=== PATIENT | female | born 1935 | race Caucasian/White ===

== ENCOUNTER 2019-06-21 09:11 | Emergency (ER) | payer MEDICARE, BC ==
[~2019-06-21] VITALS: Ht 160 cm; Wt 66.7 kg
[2019-06-21] MEDS ORDERED: LEVO-T25 MCG PO (09:28)
[2019-06-21] MEDS ORDERED: BUPROPION XL300 MG PO (09:28)
[2019-06-21] MEDS ORDERED: VITAMIN D32000 UNI2 PO (09:29)
[2019-06-21] MEDS ORDERED: CLEARLAX17 GM PO (09:29)
[2019-06-21] MEDS ORDERED: DIVALPROEX SOD125 MG PO (09:29)
[2019-06-21] MEDS ORDERED: MELOXICAM7.5 MG PO (09:29)
[2019-06-21] MEDS ORDERED: OMEPRAZOLE40 MG PO (09:30)
[2019-06-21] MEDS ORDERED: PROAIR HFA8.5 GM INH (09:30)
[2019-06-21] MEDS ORDERED: DOXYCYCLINE 10100 M2 PO (09:30)
[2019-06-21] MEDS ORDERED: CARAFATE1 GM/10 ML PO (09:30)
[2019-06-21 11:33] LABS: HEMATOCRIT 36.7 % (37.0-47.0); HEMOGLOBIN 12.4 gm/dL (12.0-15.0); MCH 31.2 pg (26.0-34.0); MCHC 33.9 g/dL (28.0-37.0); MCV 92.1 fL (80.0-100.0); MPV 9.8 fl. (7.2-11.1); RBC 3.98 mil/uL (4.20-5.00); RDW-CV 14.4 % (10.5-14.5); WBC 8.8 thou/uL (4.0-11.0)
[2019-06-21 11:58] LABS: CALCIUM 8.8 mg/dL (8.5-10.1); CREATININE 0.8 mg/dL (0.6-1.3)
[2019-06-21 12:01] LABS: PROTIME 10.7 Seconds (9.20-11.50)
[2019-06-21 12:09] LABS: ALBUMIN 3.3 g/dL (3.4-5.0); TOTAL BILIRUBIN 0.5 mg/dL (<0.1-1.0); TOTAL PROTEIN 6.5 g/dL (6.4-8.2)
[2019-06-21 13:21] VITALS: BP 106/70
--- NOTE | 2019-06-21 15:06 | EKG ---
[place] [address] ELECTROCARDIOGRAM REPORT Name: GERMAINETOÑITO [id number] Admission: 06/21/19 Attend Phys: Discharge: 06/21/19 Date of : 35 Report #: [id number] THIS REPORT FOR: //name// [facility] ED Test Date: 2019-06-21 Test Time: 11:05:09 Pat Name: TOÑITO HERRON Department: Room: Gender: F Fx Artist: [facility] : 1935 Requested By: Litzy Amaya Order Number: [id number] MD: Bebeto Smas Measurements Intervals [place] Rate: 77 P: -1 VT: 171 QRS: -13 QRSD: 98 T: -8 QT: 379 QTc: 429 Interpretive Statements Sinus arrhythmia Probable left ventricular hypertrophy Inferior infarct, old No previous ECG available for comparison Electronically Signed On 06-21-2019 15:06:01 MANAGEMENT AND BUDGET ANALYST by Bebeto Sams [email or web address] <ELECTRONICALLY SIGNED> By: Bebeto Sams MD, [facility] 06/21/19 1506 1105 04 Bebeto Sams MD, FACC /EPI
== END 2019-06-21 13:24 | disposition home or self-care (01) ==
LOC: M.ERS 09:11
PROVIDERS: Personal Emergency Response Attendant
DX: M25.572 Pain in left ankle and joints of left foot (principal); R60.0 Localized edema; M79.89 Other specified soft tissue disorders; K21.9 Gastro-esophageal reflux disease without esophagitis; E03.9 Hypothyroidism, unspecified; E78.5 Hyperlipidemia, unspecified

== ENCOUNTER 2019-07-09 01:52 | Inpatient (IN) | payer MEDICARE, BC ==
[~2019-07-09] VITALS: Ht 167.6 cm; Wt 76.5 kg
[~2019-07-09 01:52] MED LIST: BUPROPION XL300 MG PO; CARAFATE1 GM/10 ML PO; CLEARLAX17 GM PO; DIVALPROEX SOD125 MG PO; DOXYCYCLINE 10100 M2 PO; LEVO-T25 MCG PO; MELOXICAM7.5 MG PO; OMEPRAZOLE40 MG PO; PROAIR HFA8.5 GM INH; VITAMIN D32000 UNI2 PO
[2019-07-09 01:59] VITALS: BP 142/62
[2019-07-09] MEDS ORDERED: CARAFATE 11 GM/10 M1 PO (02:07)
--- NOTE | 2019-07-09 02:08 | NUR ---
CALLED [facility] FLORENCE FOR REPORT ON PATIENT. NURSE STATES "I DON'T KNOW MUCH ABOUT HER BECAUSE I WORK NIGHTS". NURSE DID STATES PATIENT'S SON IS COMING TO THE ED TONIGHT "AND MAY KNOW WHAT'S GOING ON".
[2019-07-09 02:40] LABS: ABSOLUTE BASOPHILS 0.1 thou/uL (0.0-0.2); ABSOLUTE EOSINOPHILS 0.3 thou/uL (0.0-0.7); ABSOLUTE LYMPHOCYTES 2.1 thou/uL (0.8-5.3); ABSOLUTE MONOCYTES 1.2 thou/uL (0.0-1.2); BASOPHILS 0.9 %; EOSINOPHILS 3.2 %; HEMATOCRIT 37.8 % (37.0-47.0); HEMOGLOBIN 12.5 gm/dL (12.0-15.0); LYMPHOCYTES 19.8 %; MCH 30.6 pg (26.0-34.0); MCHC 33.2 g/dL (28.0-37.0); MCV 92.4 fL (80.0-100.0); MONOCYTES 11.2 %; MPV 9.8 fl. (7.2-11.1); NUCLEATED RBCS 0 /100WBC; PLATELET COUNT* 226 thou/uL (150-400); POLYS 64.9 %; RBC 4.09 mil/uL (4.20-5.00); RDW-CV 14.2 % (10.5-14.5); WBC 10.8 thou/uL (4.0-11.0)
[2019-07-09 02:55] LABS: ALBUMIN 3.4 g/dL (3.4-5.0); CALCIUM 8.6 mg/dL (8.5-10.1); CREATININE 0.8 mg/dL (0.6-1.3); TOTAL BILIRUBIN 0.5 mg/dL (<0.1-1.0); TOTAL PROTEIN 7.1 g/dL (6.4-8.2)
--- NOTE | 2019-07-09 03:09 | NUR ---
WENT TO STRAIGHT CATH PT. MULTIPLE SATURATED BRIEFS NOTED ON PT. PANUS IS EXCORIATED AND OOZING. PT CLEANED AFTER PROCEDURE AND BARRIER CREAM APPLIED
[2019-07-09 03:15] LABS: URINE BILIRUBIN NEGATIVE (Negative); URINE BLOOD 1+ (Negative); URINE CLARITY CLEAR; URINE COLOR YELLOW; URINE GLUCOSE-RANDOM NEGATIVE (Negative); URINE KETONES NEGATIVE (Negative); URINE LEUKOCYTES-REFLEX TRACE (Negative); URINE PROTEIN NEGATIVE (Negative); URINE SPECIFIC GRAVITY 1.025 (1.005-1.030); URINE UROBILINOGEN 0.2 E.U./dl (0.2-1.0)
[2019-07-09 03:18] LABS: POTASSIUM 4.2 mmol/L (3.5-5.1)
[2019-07-09 03:20] LABS: URINE NITRITE-REFLEX POSITIVE (Negative)
[2019-07-09 03:35] LABS: CASTS None Seen /LPF (None Seen); SQUAMOUS NONE SEEN /LPF (0-3); URINE RBC 0-2 Rare /HPF (0-2); URINE WBC-REFLEX >25 Many /HPF (0-5)
[2019-07-09 03:36] LABS: BACTERIA-REFLEX >30 Many /HPF (None Seen); CRYSTALS None Seen /LPF (None Seen)
[2019-07-09 04:24] LABS: ESR (SEDRATE) 15 mm/hr (0-30)
--- NOTE | 2019-07-09 06:58 | NUR ---
THIS NURSE RECIEVED REPORT FROM CORINNE DAMICO. THIS NURSE TO ASSUME PT CARE AT THIS [facility].
[2019-07-09 08:15] VITALS: BP 108/50
[2019-07-09 09:20] VITALS: BP 128/55
--- NOTE | 2019-07-09 11:11 | EKG ---
[place] [address] ELECTROCARDIOGRAM REPORT Name: TOÑITO HERRON Room: [address] ADM IN .R.#: [id number] Admission: 07/09/19 Attend Phys: Sarah Christian Discharge: Date of : 35 Report #: [id number] THIS REPORT FOR: //name// [facility] ED Test Date: 2019-07-09 Test Time: 02:17:08 Pat Name: TOÑITO HERRON Department: Room: [facility] Gender: F Finisher [employer]: : 1935 Requested By: Yamel Real Order Number: [id number] MD: Bebeto Sams Measurements Intervals [place] Rate: 77 P: 6 UT: 172 QRS: -10 QRSD: 98 T: 10 QT: 385 QTc: 436 Interpretive Statements Sinus rhythm Atrial premature complexes in couplets Borderline T abnormalities, anterior leads Compared to ECG 06/21/2019 11:05:09 no change Electronically Signed On 07-09-2019 11:10:16 REFUGE MANAGER by Bebeto Sams [email or web address] <ELECTRONICALLY SIGNED> By: Bebeto Sams MD, [facility] 07/09/19 1110 0217 0217 Bebeto Sams MD, [facility] /EPI
[2019-07-09 17:20] VITALS: BP 147/65
--- NOTE | 2019-07-09 17:20 | NUR ---
ADMIT FROM TODAY. REVIEWED CHART PT.LIVES AT [facility]. HAS DEMENTIA. RN SAID PT.CAME IN WITH 3 BRIEFS ON ONE OVER THE OTHER, VERY SOILED. CM WAS NOT ABLE TO SPEAK WITH FAMILY BUT WILL SEE TOMORROW.
--- NOTE | 2019-07-09 17:29 | NUR ---
PATIENT TRANSFERRED FROM [facility] AT 1630. REPORT RECEIVED FROM CORINNE HARRIS. NO COMPLAINTS AT THIS TIME. PATIENT ALERT BUT CONFUSED. IV SL. BED ALARM ON FOR PATIENT SAFETY.
[2019-07-09 19:50] VITALS: BP 85/63
--- NOTE | 2019-07-10 05:51 | NUR ---
PT SOMETIMES ORIENTED TO PERSON. VERY CONFUSED. MOSTLY UNABLE TO CARRY OUT INTELLIGIBLE CONVERSATIONS. PT SLEPT OFF AND ON THIS SHIFT. PT UP TO BEDSIDE COMMODE THIS SHIFT. PT ATTEMPTED GETTING OUT OF BED SEVERAL TIMES THIS SHIFT. PT NOW SITTING ON A RECLINER. CHAIR ALARM ON. MAGAZINES PROVIDED TO KEEP PT OCCUPIED. HAND TOWELS ALSO PROVIDED FOR PT TO FOLD TO KEEP HER BUSY. PT CURRENTLY SITTING IN THE RECLINERS FLIPPING THROUGH MAGAZINES. FALL PRECAUTION IN PLACE. CALL LIGHT WITH REACH. HOURLY ROUNDINGS MADE. WILL CONTINUE TO MONITOR.
[2019-07-10 06:08] LABS: CALCIUM 8.8 mg/dL (8.5-10.1); CREATININE 0.8 mg/dL (0.6-1.3); MAGNESIUM 1.9 mg/dL (1.8-2.4); POTASSIUM 4.2 mmol/L (3.5-5.1)
[2019-07-10 08:00] VITALS: BP 105/68
[2019-07-10 12:37] LABS: INFLUENZA A ANTIGEN Negative (Negative); INFLUENZA B ANTIGEN Negative (Negative)
--- NOTE | 2019-07-10 16:14 | NUR ---
PATIENT UP IN CHAIR MOST OF SHIFT. REMAINS CONFUSED WITH DEMENTIA. IV SL, SCHED ROCEPHIN GIVEN ORDERED. NO COMPLAINTS OF PAIN. PATIENT HAD GOOD APPETITE TODAY, ASSISTED WITH TRAY SET UP.
[2019-07-10 16:27] VITALS: BP 101/62
[2019-07-10 19:30] VITALS: BP 105/57
--- NOTE | 2019-07-11 04:53 | NUR ---
PT SOMETIMES ORIENTED TO SELF. CONFUSED. FORGETFUL. PT SLEPT WELL THIS SHIFT. ATTEMPTED GETTNG OUT OF BED JUST ONCE THIS SHIFT. PT WAS TEARY AT THAT TIME AND UNABE TO EXPLAIN WHY. PT TO BSC THIS SHIFT. Q2 TURN. HOWEVER PT REPOSITIONED HERSELF SEVERAL TIMES WITHOUT ASSISTANCE. PT ROLL AROUND WELL IN BED. MEDS GIVEN PER EMAR. CALL LIGHT WITHIN REACH. FALL PRECAUTION IN PLACE. HOURLY ROUNDINGS MADE. WILL CONTINUE TO MONITOR.
--- NOTE | 2019-07-11 17:45 | NUR ---
SW met with pt and pt family to discuss role of CM and dc planning. Pt family anticipates pt possibly being ready to dc in a couple of days. SW to contact [facility] and discuss dc and provide any needed updates. SW to continue to follow.
--- NOTE | 2019-07-11 18:23 | NUR ---
PT AWAKE/ALERT. ORIENTED TO SELF. VSS. PT HAS NO IV ACCESS AT BEGINNING OF THIS SHIFT. TEOFILO RN PLACED LINE TO LFA. CXR THIS AM, NO CRITICAL RESULTS REPORTED. PT UP TO RECLINER MOST OF THIS SHIFT WITH CHAIR ALARM IN PLACE. PT SWALLOWS PILLS WITHOUT DIFFICULTY. PT IS UP SBA, GAIT STEADY. PT REMAINS CONTINENT OF B/B THIS SHIFT. PT FAMILY PRESENT THIS AFTERNOON WHEN DR PENA ROUNDED. CASE MANAGEMENT CONSULTED FOR DC PLAN. PT AMBULATED TO RESTROOM WITH SBA AND GAIT BELT. FALL PRECAUTIONS REMAIN IN PLACE FOR PT SAFETY. PT ROOM IN VIEW OF NURSES STATION. PT RESTS IN BED AT THIS TIME WITH CALL LIGHT IN REACH AND BED ALARM ON. WILL CONTINUE TO MONITOR.
[2019-07-11 21:10] LABS: HSV 1 DNA Negative (Negative); HSV 2 DNA Negative (Negative)
[2019-07-12] VITALS: BP 137/60
[2019-07-12 07:40] VITALS: BP 97/64
[2019-07-12] MEDS ORDERED: MACROBID 100 M100 MG PO (10:42)
[2019-07-12] MEDS ORDERED: CULTURELLE KID1 EAC1 PO (10:42)
[2019-07-12] MEDS ORDERED: AZITHROMYCIN 2250 MG PO (10:52)
[2019-07-12] MEDS ORDERED: KETOCONAZOLE15 GM TOP (10:52)
[2019-07-12 12:07] VITALS: BP 97/64
--- NOTE | 2019-07-12 12:36 | NUR ---
Pt to dc home to [facility] today. LEXUS called Yas at [facility] and informed of pt to dc today and faxed information and dc summary/med list. SW arranged transport for 2 to 3 pm. Pt nurse aware. LEXUS called pt son and informed of pt final dc plan; pt family in agreement with plan. [facility] ph [phone] fax [phone]
--- NOTE | 2019-07-12 14:00 | NUR ---
PT AWAKE/ALERT. ORIENTED TO SELF. VSS. PT UP SBA X1, GAIT STEADY. PT RESTS IN ROOM IN RECLINER WITH CHAIR ALARM IN PLACE. PT DOES NOT REMEMBER TO USE CALL LIGHT APPROPRIATELY. IV TO LFA DC'D PRIOR TO LEAVING UNIT. PT REMAINS FREE OF FALLS. PT TOOK MEDICATIONS THIS AM WITHOUT DIFFICULTY. PT EATS AND DRINKS UNASSISTED. PT REMAINS CONTINENT OF B/B. PT RESTS IN ROOM WITH CALL LIGHT IN REACH, IN VIEW OF NURSES STATION. PT ASSISTED TO DRESS IN PERSONAL CLOTHING FROM HOME. PT TO RETURN TO [facility] UPON DC FROM HOSPITAL. PT LEAVES UNIT IN WC WITH GREEN TIRE INSPECTOR. PT BELONGINGS IN BAG ACCOMPANY PT TO FACILITY.
== END 2019-07-12 14:00 | DRG 193 ==
LOC: M.ERS 01:52 → M.TBA-ER 05:59 → M.ORTHSURG 05:59 → M.3W 16:42
PROVIDERS: Emergency Medicine; Internal Medicine; ADMIT Internal Medicine
DX: J15.9 Unspecified bacterial pneumonia (principal); G92 Toxic encephalopathy; N30.01 Acute cystitis with hematuria; F32.9 Major depressive disorder, single episode, unspecified; K21.9 Gastro-esophageal reflux disease without esophagitis; E03.9 Hypothyroidism, unspecified; E78.5 Hyperlipidemia, unspecified; K59.00 Constipation, unspecified; I10 Essential (primary) hypertension; B37.2 Candidiasis of skin and nail; G30.9 Alzheimer's disease, unspecified; F02.80 Dementia in other diseases classified elsewhere, unspecified severity, without behavioral disturbance, psychotic disturbance, mood disturbance, and anxiety; B96.20 Unspecified Escherichia coli [E. coli] as the cause of diseases classified elsewhere; Z87.891 Personal history of nicotine dependence; Z79.899 Other long term (current) drug therapy

== ENCOUNTER 2019-08-04 05:39 | Inpatient (IN) | payer MEDICARE, BC ==
[~2019-08-04] VITALS: Ht 160 cm; Wt 74.8 kg
[~2019-08-04 05:39] MED LIST changes: +AZITHROMYCIN 2250 MG PO; +CARAFATE 11 GM/10 M1 PO; +CULTURELLE KID1 EAC1 PO; +KETOCONAZOLE15 GM TOP; +MACROBID 100 M100 MG PO
[2019-08-04 05:50] VITALS: BP 140/58
[2019-08-04] MEDS ORDERED: VITAMIN D32000 UNI2 PO (06:00)
[2019-08-04 06:38] LABS: ABSOLUTE BASOPHILS 0.1 thou/uL (0.0-0.2); ABSOLUTE EOSINOPHILS 0.1 thou/uL (0.0-0.7); ABSOLUTE LYMPHOCYTES 1.7 thou/uL (0.8-5.3); ABSOLUTE NEUTROPHILS 7.6 thou/uL (1.6-8.1); BASOPHILS 0.9 %; EOSINOPHILS 1.3 %; HEMATOCRIT 37.5 % (37.0-47.0); HEMOGLOBIN 12.6 gm/dL (12.0-15.0); LYMPHOCYTES 16.4 %; MCH 31.1 pg (26.0-34.0); MCHC 33.7 g/dL (28.0-37.0); MCV 92.3 fL (80.0-100.0); MONOCYTES 9.2 %; MPV 9.8 fl. (7.2-11.1); NUCLEATED RBCS 0 /100WBC; PLATELET COUNT* 215 thou/uL (150-400); POLYS 72.2 %; RBC 4.06 mil/uL (4.20-5.00); RDW-CV 14.9 % (10.5-14.5); WBC 10.5 thou/uL (4.0-11.0)
[2019-08-04 06:43] LABS: CALCIUM 8.3 mg/dL (8.5-10.1); CREATININE 0.6 mg/dL (0.6-1.3); POTASSIUM 4.2 mmol/L (3.5-5.1)
[2019-08-04 06:47] LABS: ALBUMIN 3.4 g/dL (3.4-5.0); TOTAL BILIRUBIN 0.3 mg/dL (<0.1-1.0); TOTAL PROTEIN 6.8 g/dL (6.4-8.2)
[2019-08-04 08:35] LABS: URINE BILIRUBIN NEGATIVE (Negative); URINE BLOOD NEGATIVE (Negative); URINE CLARITY CLEAR; URINE COLOR YELLOW; URINE GLUCOSE-RANDOM NEGATIVE (Negative); URINE KETONES NEGATIVE (Negative); URINE LEUKOCYTES-REFLEX NEGATIVE (Negative); URINE NITRITE-REFLEX NEGATIVE (Negative); URINE PROTEIN NEGATIVE (Negative); URINE SPECIFIC GRAVITY 1.025 (1.005-1.030); URINE UROBILINOGEN 0.2 E.U./dl (0.2-1.0)
--- NOTE | 2019-08-04 11:38 | NUR ---
PT LEFT FOR SURGERY WITH PRE-OP RN
[2019-08-04 11:39] VITALS: BP 127/66
--- NOTE | 2019-08-04 15:08 | EKG ---
[place] [address] ELECTROCARDIOGRAM REPORT Name: JACOB HERRONDYS NATE Room: [facility]- ADM IN .R.#: [id number] Admission: 08/04/19 Attend Phys: Lavon Rivas Discharge: Date of : 35 Date of Service: 08/04/19 0640 Report #: [id number] THIS REPORT FOR: //name// [facility] ED Test Date: 2019-08-04 Test Time: 06:40:20 Pat Name: TOÑITO HERRON Department: Room: [facility] Gender: F Pack Room Operator: FILI : 1935 Requested By: Moses Carter Order Number: [id number] MD: Asim Aguilar Measurements Intervals [place] Rate: 65 P: 18 IA: 178 QRS: -9 QRSD: 108 T: -3 QT: 417 QTc: 434 Interpretive Statements Sinus rhythm Inferior infarct, old Compared to ECG 07/09/2019 02:17:08 Myocardial infarct finding now present Atrial premature complex(es) no longer present T-wave abnormality no longer present Electronically Signed On 08-04-2019 15:07:28 YARN COMBER by Asim Aguilar [email or web address] <ELECTRONICALLY SIGNED> By: Erick Aguilar MD, [facility] 08/04/19 1507 0640 Erick Aguilar MD, [facility] /EPI
[2019-08-04 15:30] VITALS: BP 157/79
--- NOTE | 2019-08-04 17:33 | NUR ---
ASSESSMENT COMPLETE. PT ADMITTED WITH INCARCERATED VENTRAL HERNIA, SURGERY DONE BY HANDY. PT SLEEPING UPON ADMISSION TO FLOOR. RESPONDS TO VOICE. PT DENIES PAIN AT THIS TIME. VSS. PT IS ON 3L PER NC WITH CONTINOUS PULSE OX. DRESSING TO RIGHT SIDE OF ABD C/D/I, ABD BINDER INTACT. PT HAS NO OTHER CONCERNS AT THIS TIME. SEE ASSESSMENT AND VITALS FOR OTHER DETAILS. CALL LIGHT WITHIN REACH, WILL CONTINUE PLAN OF CARE
[2019-08-04 19:20] VITALS: BP 147/75
[2019-08-04 23:56] VITALS: BP 137/57
[2019-08-05 04:00] VITALS: BP 132/62
[2019-08-05 04:23] LABS: ABSOLUTE LYMPHOCYTES 1.3 thou/uL (0.8-5.3); BASOPHILS 0.4 %; EOSINOPHILS 0.1 %; HEMATOCRIT 35.7 % (37.0-47.0); HEMOGLOBIN 11.9 gm/dL (12.0-15.0); LYMPHOCYTES 12.5 %; MCH 30.9 pg (26.0-34.0); MCHC 33.3 g/dL (28.0-37.0); MCV 92.8 fL (80.0-100.0); MONOCYTES 9.3 %; MPV 10.2 fl. (7.2-11.1); NUCLEATED RBCS 0 /100WBC; PLATELET COUNT* 197 thou/uL (150-400); POLYS 77.7 %; RBC 3.85 mil/uL (4.20-5.00); RDW-CV 14.7 % (10.5-14.5); WBC 10.3 thou/uL (4.0-11.0)
[2019-08-05 04:36] LABS: CALCIUM 8.2 mg/dL (8.5-10.1); CREATININE 0.8 mg/dL (0.6-1.3)
[2019-08-05 04:56] LABS: POTASSIUM 4.2 mmol/L (3.5-5.1)
--- NOTE | 2019-08-05 05:08 | NUR ---
PT SLEPT ON AND OFF LAST NIGHT, RECEIVING IV AND PO PAIN MED WITH GOOD RELIEF. CONFUSED, ANXIOUS AND TEARY FOR A WHILE IN THE MIDDLE OF THE NIGHT. REASSURANCE GIVEN. CONTINUOUS PULSE OX ON, O2 SAT MID 90'S WITH O2 2L WHILE ASLEEP. R HAND IVF INFUSING PER PUMP. ABD BINDER IN PLACE TO ABDOMEN. ABD DRSG CDI. INCONT URINE OVERNIGHT SEVERAL TIMES. UP WITH 2 ASSIST TO BSC. SCDS ON. CALL LITE IN EASY REACH ,BED ALARM ON FOR SAFETY. AM LABS DRAWN. TOLERATING SIPS OF CLEARS WITHOUT N/V.
[2019-08-05 07:50] VITALS: BP 99/60
--- NOTE | 2019-08-05 12:47 | NUR ---
FAXED REFERRAL TO [facility] [phone]. WILL CALL TO CONFIRM ALLEN/INTAKE RECEIVED AND BED AVAILABILITY ON 08/07/19. THERAPY NOTES WILL BE FAXED WHEN OT & PT SERVICES COMPLETED AND DOCUMENTED.
--- NOTE | 2019-08-05 13:19 | NUR ---
cm completed intial assessment. pt is not a&o. pt son, agatha, states he is pt's dpoa. pt [facility] per agatha pt is alert to self sometimes, "depends." and, pt's memory and orientation seems to be better in the mornings. pt uses cane. pt has hx w/[facility]. cm spk w/DON at [facility]. per wagner pt okay to return to facility as long as she can transfer w/one assist, has no drainage, and will need HH if pt needs wound dressings change. pt son does not have a preference re snf. d/c raw material plannermitesh is faxing referral to V today. cm to remain avail to assist as needed.
[2019-08-05 16:00] VITALS: BP 102/54
--- NOTE | 2019-08-05 16:58 | NUR ---
I have reviewed the documentation by MELISSA JACKSON from 08/05/19 to 08/05/19 and I concur with it. JESS WALKER
--- NOTE | 2019-08-05 17:02 | NUR ---
ASSESSMENT COMPLETE. PT ALERT AND ORIENTED TO SELF. PT HAS HX OF DEMENTIA. PRN PAIN MEDICATION GIVEN NEEDED. PT UP IN CHAIR MOST OF THE DAY. AMBULATED WITH PHYSICAL THERAPY. PT IS INCONT, Q2 TURN. PT IS ON 3L PER NC WHEN ASLEEP. VSS. DRESSING TO ABDOMEN C/D/I, BINDER IN PLACE. PT IS SLEEPING AT THIS TIME. SEE ASSESSMENT AND VITALS FOR OTHER DETAILS. CALL LIGHT WITHIN REACH, WILL CONTINUE PLAN OF CARE
[2019-08-05 20:30] VITALS: BP 134/61
[2019-08-06] VITALS: BP 136/64
[2019-08-06 05:41] LABS: HEMATOCRIT 32.3 % (37.0-47.0); MCH 31.4 pg (26.0-34.0); MCV 92.4 fL (80.0-100.0); MPV 9.7 fl. (7.2-11.1); RBC 3.5 mil/uL (4.20-5.00); RDW-CV 14.6 % (10.5-14.5)
--- NOTE | 2019-08-06 05:50 | NUR ---
PATIENT SLEPT MOST OF THE NIGHT. IV FLUIDS CONTINUE TO INFUSE AT 100 ML/HR. DRESSING TO ABDOMEN REMAINS INTACT WITH ABDOMINAL BINDER IN PLACE. PATIENT HAS BEEN TURNED AND CHANGED ABOUT EVERY TWO HOURS. WILL CONTINUE TO MONITOR.
[2019-08-06 05:55] LABS: CALCIUM 7.8 mg/dL (8.5-10.1); CREATININE 0.8 mg/dL (0.6-1.3); MAGNESIUM 1.9 mg/dL (1.8-2.4); POTASSIUM 3.8 mmol/L (3.5-5.1)
[2019-08-06 07:28] VITALS: BP 117/52
--- NOTE | 2019-08-06 11:30 | NUR ---
SON REQUESTING TO SPEAK TO CM THIS AM. WHEN CM WENT INTO ROOM SON WAS ALREADY GONE. MESSAGES LEFT BUT NO RETURN CALL. CM TO DISCUSS PLACEMENT OPTIONS. PLAN TO DC TOMORROW
--- NOTE | 2019-08-06 13:26 | NUR ---
I have reviewed the documentation by MELISSA JACKSON from 08/06/19 to 08/06/19 and I concur with it. JESS WALKER
--- NOTE | 2019-08-06 15:09 | NUR ---
RECEIVED CALL FROM SON JUSTEN WHO STATES HE IS OK FOR PT TO GO TO [facility] TOMORROW OR LATER THIS WEEK WHEN DISCHARGED.
[2019-08-06 15:30] VITALS: BP 178/65
--- NOTE | 2019-08-06 16:02 | NUR ---
PATIENT UP TO CHAIR FOR MEALS AND AMBULATING IN ROOM WITH ASSISTANCE. PATIENT UTILZING WALKER AND GAIT BELT. PATIENT REMAINS CONFUSED HX DEMENTIA. IV SL ORDERED. CXR DONE AND RESULTS SENT TO DR. MONTEZ, NO NEW ORDERS RECEIVED. PATIENT HAS A FAIR APPETITE, ENCOURAGED TO EAT. PRN OXY IR GIVEN FOR ABD PAIN X 2. ABD BINDER AND MIDLINE REMAIN IN PLACE, D/I. PATIENT DID HAVE A SMALL FORMED STOOL THIS SHIFT, SCHED STOOL SOFTNERS AND ONE TIME SUPPOSITORY GIVEN ORDERED. DISCHARGE TO SNF POSSIBLE TOMORROW.
[2019-08-06 16:58] VITALS: BP 129/66
[2019-08-06 21:30] VITALS: BP 166/64
[2019-08-07 05:04] LABS: HEMATOCRIT 34.3 % (37.0-47.0); HEMOGLOBIN 11.4 gm/dL (12.0-15.0); MCH 30.8 pg (26.0-34.0); MCHC 33.3 g/dL (28.0-37.0); MCV 92.2 fL (80.0-100.0); MPV 9.8 fl. (7.2-11.1); RBC 3.72 mil/uL (4.20-5.00); RDW-CV 14.6 % (10.5-14.5); WBC 11.4 thou/uL (4.0-11.0)
--- NOTE | 2019-08-07 05:13 | NUR ---
PATIENT PART OF THE NIGHT. IV REMAINS SALINE LOCKED. PATIENT WAS GIVEN PAIN MEDICINE ONCE THIS SHIFT. PATIENT IS POSSIBLY DISCHARGING TODAY. WILL CONTINUE TO MONITOR.
[2019-08-07 05:20] LABS: CALCIUM 8.2 mg/dL (8.5-10.1); CREATININE 0.7 mg/dL (0.6-1.3); POTASSIUM 3.5 mmol/L (3.5-5.1)
[2019-08-07 05:21] LABS: CALCIUM 8.4 mg/dL (8.5-10.1); CREATININE 0.7 mg/dL (0.6-1.3); MAGNESIUM 1.9 mg/dL (1.8-2.4); POTASSIUM 3.4 mmol/L (3.5-5.1)
[2019-08-07 08:25] VITALS: BP 131/62
--- NOTE | 2019-08-07 10:07 | PATH ---
[address] [address] PATHOLOGY RPT PROCEDURE Name: MARTHA HERRON Room: [address] IN .R.#: [id number] Admission: 08/04/19 Date of : 35 Discharge: Report #: [id number] Path Case #: [id number] LCA Accession Number: [id number] . 01 Material submitted: . hernia - HERNIA SAC . 01 Clinical history: . Incarcerated ventral hernia . 02 Diagnosis: Hernia sac: - Benign mesothelial-lined fibromembranous/fibrofatty tissue with fibrosis and mild chronic inflammation. . (DAIJA:mml; 08/06/2019) QLM 08/06/2019 1016 Local . 02 Electronically signed: . Roney Trinh MD, Pathologist NPI- [id number] . 01 Gross description: . The specimen is received in formalin, labeled "Martha Wigginton, hernia sac". Received is a segment of fibromembranous tissue measuring 5.3 x 3.1 x 1.2 cm in greatest dimensions. No distinct nodules or lesions are noted grossly. The specimen is submitted representatively in cassette A1. (CAA; 08/05/2019) Q[facility] 08/05/2019 1153 Local . 02 Pathologist provided ICD-10: K43.6 . 02 CPT . 127396 Specimen Comment: A courtesy copy of this report has been sent to [phone] Specimen Comment: Report sent to Specimen Comment: A duplicate report has been generated due to demographic updates. Performed at: [address], [place], [place] [id number] MD Michael Black MD Phone: [phone] Performed at: [address] [address] [address], [place], [place] [id number] MD Roney Trinh MD Phone: [phone]
[2019-08-07] MEDS ORDERED: OXYCODONE HCL 55 MG PO (11:24)
[2019-08-07 11:25] VITALS: BP 131/62
[2019-08-07] MEDS ORDERED: PAIN & FEVER325 MG PO (11:31)
--- NOTE | 2019-08-07 11:44 | NUR ---
DISCHARGE ORDERS RECEIVED. PLAN TO DISCHARGE TO [facility]. WILL VERIFY WITH [facility] AND ARRANGE TRANSPORT
--- NOTE | 2019-08-07 12:40 | OP ---
[address] [address] OPERATIVE REPORT Name: TOÑITO HERRON Room: [address] IN M.R.#: [id number] Admission: 08/04/19 Attend Phys: Jose Pereyra Discharge: Date of : 35 Report #: [id number] THIS REPORT FOR: //name// cc: Rebeca Borjas Kathryn C. DO ~ THIS REPORT FOR: //name// CC: Rebeca Rivas DICTATED BY: Tomy Schneider DO DATE OF SERVICE: 08/04/2019 PREOPERATIVE DIAGNOSIS: Incarcerated ventral hernia. POSTOPERATIVE DIAGNOSIS: Incarcerated ventral hernia containing transverse colon. SURGEON: Juan M Franco D.O. MANAGER SAFE: Cr Schneider, PGY5. OPERATION PERFORMED: Ventral hernia repair with 6.[address] [place] mesh and ligation of the hernia sac. ANESTHESIA: General. ESTIMATED BLOOD LOSS: 25 mL. SPECIMENS: Hernia sac. COMPLICATIONS: None. COMMENTS: We were able to reduce the hernia sac contents containing omentum and transverse colon. All the contents within the sac appeared healthy. There were no signs of strangulation. The hernia defect was adjacent to the previous mesh and measured approximately 3 x 2 cm in size. We used a 6.[address] [place] mesh to repair the defect in an underlay position and closed the fascia over the top of the mesh using interrupted sutures. DESCRIPTION OF PROCEDURE: After the appropriate consents were obtained, this patient was taken to the operating room, laid in supine position. She had SCDs placed on her bilateral lower extremities and safety strap placed across her [facility] [address] [id number] OPERATIVE REPORT Name: TOÑITO HERRON NATE Room: [address] IN ..#: [id number] Admission: 08/04/19 Attend Phys: Jose Pereyra Discharge: Date of : 35 Report #: [id number] lap. She had both arms placed out at her sides. All lines placed by Anesthesia. The patient was sedated and intubated by Anesthesia without difficulty. Her abdomen was then exposed, prepped and draped in a standard sterile fashion. A timeout was performed to correctly identify the patient and procedure. She received 2 g of Ancef prior to incision. We elected to make a vertical incision directly over the obvious bulge just to the right of her midline. This was done using a #10 blade scalpel. This was carried down through subcutaneous tissues using electrocautery. Once we encountered the hernia sac, it was dissected circumferentially and freed up using a blunt dissection with hemostat as well as electrocautery in order to lyse the bands of adhesions. It appeared that this hernia sac had been there for quite a while as it was adhesed to the surrounding subcutaneous tissue. Once we dissected it free circumferentially, we were able to easily reduce the hernia sac contents and open the sac. All contents within the sac appeared healthy and these contents were reduced into the patient's intra-abdominal cavity. We elected to perform a high ligation on the sac and this was done using a right angle hemostat and ensured there were no contents within the sac. Upon doing so, this was clamped across it and then using a 2-0 Vicryl stitch, it was ligated twice and then we used electrocautery to cut through the superior portion and passed it off as specimen to be sent to Pathology. We then reduced the hernia sac back into the patient's intra-abdominal cavity and freed up any adhesions that were present on the underside of the peritoneum. There were a few adhesions mostly along the medial aspect of the defect, which were just adjacent to the previously placed mesh that we were able to palpate. We were able to easily see stitches within the fascia as well. We measured the defect to be approximately 3 x 2 cm and oval. Given the size of the defect, we elected to place a 6.[address] [place] mesh in an underlay position. This was placed and we elected to orient it to where we could close it primarily horizontally. Using #2-0 Prolene suture, we tacked the mesh to the fascia in 4 quadrants and then placed the sutures in between each of these sutures as well. These were interrupted sutures placed. Once we were pleased with how the mesh was sitting with good aposition to the abdominal wall, we then decided to close the fascia over top. We closed this using a #1 Prolene stitch, and it was closed primarily over the top of the mesh. We used simple and interrupted sutures and closed rather nicely with minimal tension. Once this was completed and we were pleased with our repair, we irrigated the cavity copiously using sterile saline and then closed the defect using a 3-0 Vicryl stitch. We did close up some of the space and tacked into the fascia in order to help prevent seroma formation. We closed the subcutaneous tissue as well as the dermis using the same 3-0 Vicryl stitch. We used a 4-0 [place] [address] OPERATIVE REPORT Name: TOÑITO HERRON Room: [address] IN [facility]#: [id number] Admission: 08/04/19 Attend Phys: Jose Pereyra Discharge: Date of : 35 Report #: [id number] subcuticular fashion to close the skin. The skin was cleaned and dried adequately and placed Mastisol, steri-strips, Telfa and a Mepilex over this incision. The patient was allowed to awaken and subsequently extubated in the OR. All counts were correct x 2 at the end of this procedure. Dr. Franco was present and scrubbed for the entirety of this procedure. The patient tolerated the procedure very well. She will be transported to PACU for further recovery and then be admitted overnight for observation. <ELECTRONICALLY SIGNED> By: Juan M Franco DO 08/07/19 1240 1433 1818Juan M Franco DO /nt
--- NOTE | 2019-08-07 13:00 | NUR ---
PT TO GO TO [facility] TODAY. TRANSPORT FOR 1500 BY BERNIE LAWSON. CALLED SON JUSTEN AND NOTIFIED HIM OF DISCHARGE
[2019-08-07 13:41] VITALS: BP 131/62
--- NOTE | 2019-08-07 14:47 | NUR ---
FAXED DISCHARGE SUMMARY AND CLINICAL UPDATES TO [facility] [phone].
--- NOTE | 2019-08-07 16:27 | NUR ---
PT. DISCHARGED TO [facility] PRIOR TO O.T. EVAL WAS COMPLETED. O.T. ATTEMPTED TO SEE PT. YESTERDAY BUT SHE WAS UNABLE TO PARTICIPATE YESTERDAY AFTERNOON. PLEASE ORDER FURTHER O.T. SERVICES NEEDED FOR THIS PT.
--- NOTE | 2019-08-07 16:50 | NUR ---
PATIENT UP WITH ASSISTANCE TO CHAIR AND AMBULATING SHORT DISTANCES IN ROOM. PATIENT INCONTINENT OF URINE, NO BM NOTED TODAY. FAIR APPETITE TODAY, PATIENT WAS FEEDING HERSELF TODAY. POTASSUM REPLACED PER PROTOCOL. REPORT CALLED TO [facility], SPOKE WITH IVETTE. PATIENT SENT WITH ALL BELONGINGS VIA WHEELCHAIR VAN.
== END 2019-08-07 16:00 | DRG 353 ==
LOC: M.ERS 05:39 → M.TBA-ER 11:33 → M.ERS 11:33 → M.3W 15:05
PROVIDERS: Emergency Medicine Emergency Medical Services; Internal Medicine; Surgery; ADMIT Internal Medicine
PROC: 0WUF0JZ Supplement Abdominal Wall with Synthetic Substitute, Open Approach (ICD-10-PCS; principal; 2019-08-04)
DX: K43.6 Other and unspecified ventral hernia with obstruction, without gangrene (principal); G92 Toxic encephalopathy; F03.90 Unspecified dementia, unspecified severity, without behavioral disturbance, psychotic disturbance, mood disturbance, and anxiety; F32.9 Major depressive disorder, single episode, unspecified; K21.9 Gastro-esophageal reflux disease without esophagitis; E03.9 Hypothyroidism, unspecified; T50.995A Adverse effect of other drugs, medicaments and biological substances, initial encounter; E78.5 Hyperlipidemia, unspecified; M81.0 Age-related osteoporosis without current pathological fracture; D64.9 Anemia, unspecified; J44.9 Chronic obstructive pulmonary disease, unspecified; Z87.891 Personal history of nicotine dependence; Z79.899 Other long term (current) drug therapy; Y92.89 Other specified places as the place of occurrence of the external cause

== ENCOUNTER 2020-06-01 13:54 | Inpatient (IN) | payer MEDICARE, BC ==
[~2020-06-01] VITALS: Ht 165.1 cm; Wt 81.6 kg
[~2020-06-01 13:54] MED LIST changes: +OXYCODONE HCL 55 MG PO; +PAIN & FEVER325 MG PO
[2020-06-01 13:57] VITALS: BP 128/59
[2020-06-01] MEDS ORDERED: ZPAK PO (16:54)
[2020-06-01 21:49] LABS: ABSOLUTE LYMPHOCYTES 0.9 thou/uL (0.8-5.3); ABSOLUTE MONOCYTES 0.7 thou/uL (0.0-1.2); ABSOLUTE NEUTROPHILS 3.5 thou/uL (1.6-8.1); BASOPHILS 0.6 %; EOSINOPHILS 0.1 %; HEMATOCRIT 35.5 % (37.0-47.0); HEMOGLOBIN 11.6 gm/dL (12.0-15.0); LYMPHOCYTES 17.6 %; MCH 29.8 pg (26.0-34.0); MCHC 32.8 g/dL (28.0-37.0); MCV 90.9 fL (80.0-100.0); MONOCYTES 12.7 %; MPV 9.9 fl. (7.2-11.1); NUCLEATED RBCS 0 /100WBC; PLATELET COUNT* 144 thou/uL (150-400); RDW-CV 16.2 % (10.5-14.5); WBC 5.1 thou/uL (4.0-11.0)
[2020-06-01 21:58] LABS: CREATININE 0.7 mg/dL (0.6-1.3)
[2020-06-01 22:03] LABS: ALBUMIN 3.1 g/dL (3.4-5.0); TOTAL BILIRUBIN 0.4 mg/dL (<0.1-1.0); TOTAL PROTEIN 6.6 g/dL (6.4-8.2)
[2020-06-02 03:04] VITALS: BP 138/64
[2020-06-02 05:59] LABS: HEMATOCRIT 36.9 % (37.0-47.0); MCH 29.5 pg (26.0-34.0); MCHC 32.6 g/dL (28.0-37.0); MCV 90.5 fL (80.0-100.0); MPV 10.6 fl. (7.2-11.1); NUCLEATED RBCS 0 /100WBC; PLATELET COUNT* 140 thou/uL (150-400); RBC 4.08 mil/uL (4.20-5.00); RDW-CV 16.2 % (10.5-14.5); WBC 6.4 thou/uL (4.0-11.0)
[2020-06-02 06:07] LABS: ALBUMIN 3.2 g/dL (3.4-5.0); CALCIUM 8.1 mg/dL (8.5-10.1); CREATININE 0.8 mg/dL (0.6-1.3); TOTAL BILIRUBIN 0.3 mg/dL (<0.1-1.0); TOTAL PROTEIN 6.4 g/dL (6.4-8.2)
[2020-06-02 06:43] VITALS: BP 109/57
[2020-06-02 06:45] LABS: ABSOLUTE LYMPHOCYTES 0.6 thou/uL (0.8-5.3); ABSOLUTE MONOCYTES 0.3 thou/uL (0.0-1.2); ABSOLUTE NEUTROPHILS 5.4 thou/uL (1.6-8.1); ANISOCYTOSIS 1+; OVALOCYTES Occasional; PLATELET ESTIMATE DECREASED; POIKILOCYTOSIS 1+
[2020-06-02] MEDS ORDERED: DORYX MPC120 MG PO (10:05)
[2020-06-02] MEDS ORDERED: NIACIN 500 MG500 M1 PO (10:06)
[2020-06-02] MEDS ORDERED: VITAMIN D310 MC1 PO (10:09)
[2020-06-02] MEDS ORDERED: ASPIRIN-DIPYRI1 EACH PO (10:09)
[2020-06-02] MEDS ORDERED: VITAMIN C500 M2 PO (10:11)
[2020-06-02 12:03] VITALS: BP 133/68
[2020-06-02 12:05] VITALS: BP 133/68
--- NOTE | 2020-06-02 12:24 | EKG ---
[place] [address] ELECTROCARDIOGRAM REPORT Name: TOÑITO HERRONFLACA Room: [address] [address] ADM IN [facility].#: [id number] Admission: 06/01/20 Attend Phys: Janett Shultz, Discharge: Date of : 35 Date of Service: 06/01/20 223 Report #: [id number] THIS REPORT FOR: //name// [facility] ED Test Date: 2020-06-01 Test Time: 22:37:03 Pat Name: TOÑITO HERRON Department: Room: [facility] Gender: F Source Water Protection Specialist: MR : 1935 Requested By: Paola Kelley Order Number: [id number] MD: Javier Alonso Measurements Intervals [place] Rate: 84 P: 43 SC: 149 QRS: -15 QRSD: 97 T: -69 QT: 344 QTc: 407 Interpretive Statements Sinus rhythm Atrial premature complex Nonspecific repol abnormality, diffuse leads Baseline wander in lead(s) V5 Compared to ECG 08/04/2019 06:40:20 Atrial premature complex(es) now present Early repolarization now present Myocardial infarct finding no longer present Electronically Signed On 06-02-2020 12:24:29 CYCLE SPECIALIST by Javier Alonso [email or web address] <ELECTRONICALLY SIGNED> By: Javier Alonso MD, [facility] 06/02/20 1224 36 36 Javier Alonso MD, [facility] /EPI
== END 2020-06-02 12:00 | DRG 177 ==
LOC: M.ERS 13:54 → M.TBA-ER 22:09 → M.ERS 22:09 → M.TBA-ER 22:21
PROVIDERS: Nurse Practitioner Family; Personal Emergency Response Attendant; ADMIT Internal Medicine; ATTEND Internal Medicine
DX: U07.1 COVID-19 (principal); J15.9 Unspecified bacterial pneumonia; E44.1 Mild protein-calorie malnutrition; F32.9 Major depressive disorder, single episode, unspecified; K21.9 Gastro-esophageal reflux disease without esophagitis; E03.9 Hypothyroidism, unspecified; E78.5 Hyperlipidemia, unspecified; M25.552 Pain in left hip; M25.551 Pain in right hip; M25.561 Pain in right knee; I10 Essential (primary) hypertension; S41.111A Laceration without foreign body of right upper arm, initial encounter; F03.90 Unspecified dementia, unspecified severity, without behavioral disturbance, psychotic disturbance, mood disturbance, and anxiety; W18.39XA Other fall on same level, initial encounter; Z66 Do not resuscitate; Z51.5 Encounter for palliative care; Z79.899 Other long term (current) drug therapy; Z87.891 Personal history of nicotine dependence; Z68.29 Body mass index [BMI] 29.0-29.9, adult; Y93.89 Activity, other specified; Y92.198 Other place in other specified residential institution as the place of occurrence of the external cause; Y99.8 Other external cause status

== ENCOUNTER 2020-06-03 17:06 | Emergency (ER) | payer MEDICARE, BC ==
[~2020-06-03] VITALS: Ht 165.1 cm; Wt 87.5 kg
[~2020-06-03 17:06] MED LIST changes: +ASPIRIN-DIPYRI1 EACH PO; +DORYX MPC120 MG PO; +NIACIN 500 MG500 M1 PO; +VITAMIN C500 M2 PO; +VITAMIN D310 MC1 PO; +ZPAK PO
[2020-06-03 18:50] VITALS: BP 125/52
== END 2020-06-03 18:50 | disposition home or self-care (01) ==
LOC: M.ERS 17:06
DX: S61.412A Laceration without foreign body of left hand, initial encounter (principal); K21.9 Gastro-esophageal reflux disease without esophagitis; E78.5 Hyperlipidemia, unspecified; W07.XXXA Fall from chair, initial encounter; Y93.89 Activity, other specified; Y92.89 Other specified places as the place of occurrence of the external cause; Y99.8 Other external cause status

== ENCOUNTER 2020-06-08 03:30 | Inpatient (IN) | payer MEDICARE, BC ==
[~2020-06-08] VITALS: Ht 160 cm; Wt 70.9 kg
[2020-06-08 03:31] VITALS: BP 155/97
[2020-06-08] MEDS ORDERED: DEXAMETHASONE 44 M1 PO (04:37)
[2020-06-08] MEDS ORDERED: AZITHROMYCIN500 MG PO (04:38)
[2020-06-08] MEDS ORDERED: DIFLUCAN100 MG PO (04:40)
[2020-06-08] MEDS ORDERED: MELATONIN3 M1 PO (04:42)
[2020-06-08] MEDS ORDERED: OXYCODONE HCL 55 MG PO (04:44)
[2020-06-08 05:44] LABS: INFLUENZA A ANTIGEN Negative (Negative); INFLUENZA B ANTIGEN Negative (Negative)
[2020-06-08 06:05] LABS: ABSOLUTE LYMPHOCYTES 1.1 thou/uL (0.8-5.3); ABSOLUTE NEUTROPHILS 9.1 thou/uL (1.6-8.1); BASOPHILS 0.2 %; HEMOGLOBIN 11.8 gm/dL (12.0-15.0); MCH 28.8 pg (26.0-34.0); MCHC 31.9 g/dL (28.0-37.0); MCV 90.3 fL (80.0-100.0); MONOCYTES 8.7 %; MPV 8.9 fl. (7.2-11.1); NUCLEATED RBCS 0 /100WBC; PLATELET COUNT* 189 thou/uL (150-400); POLYS 81.1 %; WBC 11.2 thou/uL (4.0-11.0)
[2020-06-08 06:14] LABS: INR 1.1
[2020-06-08 06:23] LABS: CALCIUM 9.1 mg/dL (8.5-10.1); CREATININE 0.6 mg/dL (0.6-1.3); POTASSIUM 3.2 mmol/L (3.5-5.1)
[2020-06-08 06:33] LABS: ALBUMIN 3.1 g/dL (3.4-5.0); TOTAL BILIRUBIN 0.6 mg/dL (<0.1-1.0); TOTAL PROTEIN 6.6 g/dL (6.4-8.2)
[2020-06-08 07:15] VITALS: BP 112/67
--- NOTE | 2020-06-08 10:30 | EKG ---
[place] [address] ELECTROCARDIOGRAM REPORT Name: TOÑITO HERRON Room: [address] ADM IN ..#: [id number] Admission: 06/08/20 Attend Phys: Janett Shultz, Discharge: Date of : 35 Date of Service: 06/08/20 0346 Report #: [id number] THIS REPORT FOR: //name// [facility] ED Test Date: 2020-06-08 Test Time: 03:46:21 Pat Name: TOÑITO HERRON Department: Room: [facility] Gender: F Skin Fitter: AIDEN : 1935 Requested By: Yamel Real Order Number: [id number] MD: Bebeto Sams Measurements Intervals [place] Rate: 71 P: 16 WI: 196 QRS: -2 QRSD: 94 T: -2 QT: 408 QTc: 444 Interpretive Statements Sinus arrhythmia Abnormal R-wave progression, early transition Borderline repolarization abnormality Compared to ECG 06/01/2020 22:37:03 Sinus rhythm no longer present Electronically Signed On 06-08-2020 10:30:26 OUTBOUND SALES REPRESENTATIVE by Bebeto Sams [email or web address] <ELECTRONICALLY SIGNED> By: Bebeto Sams MD, FACC 06/08/20 1030 0346 0346 Bebeto Sams MD, FACC /EPI
[2020-06-08 12:00] VITALS: BP 120/60
[2020-06-08 12:18] LABS: URINE BILIRUBIN NEGATIVE (Negative); URINE BLOOD NEGATIVE (Negative); URINE CLARITY CLEAR; URINE COLOR YELLOW; URINE GLUCOSE-RANDOM NEGATIVE (Negative); URINE KETONES NEGATIVE (Negative); URINE LEUKOCYTES-REFLEX NEGATIVE (Negative); URINE NITRITE-REFLEX NEGATIVE (Negative); URINE PROTEIN 1+ (Negative); URINE SPECIFIC GRAVITY 1.025 (1.005-1.030); URINE UROBILINOGEN 0.2 E.U./dl (0.2-1.0)
[2020-06-08 17:00] VITALS: BP 127/60
[2020-06-08 20:55] VITALS: BP 139/71
[2020-06-08 23:54] VITALS: BP 139/71
[2020-06-09 04:00] VITALS: BP 127/57
[2020-06-09 04:58] VITALS: BP 125/59
[2020-06-09 05:23] LABS: HEMATOCRIT 34.6 % (37.0-47.0); HEMOGLOBIN 11.1 gm/dL (12.0-15.0); MCH 29.5 pg (26.0-34.0); MCHC 32.1 g/dL (28.0-37.0); MCV 91.7 fL (80.0-100.0); MPV 9.7 fl. (7.2-11.1); RBC 3.78 mil/uL (4.20-5.00); WBC 9.4 thou/uL (4.0-11.0)
[2020-06-09 05:55] LABS: ALBUMIN 2.9 g/dL (3.4-5.0); CREATININE 0.8 mg/dL (0.6-1.3); MAGNESIUM 2.1 mg/dL (1.8-2.4); POTASSIUM 3.9 mmol/L (3.5-5.1); TOTAL BILIRUBIN 0.5 mg/dL (<0.1-1.0); TOTAL PROTEIN 6.2 g/dL (6.4-8.2)
[2020-06-09 07:50] VITALS: BP 114/90
[2020-06-09 16:00] VITALS: BP 130/56
[2020-06-09 21:06] VITALS: BP 129/65
[2020-06-10 00:33] VITALS: BP 159/87
[2020-06-10 05:07] LABS: HEMATOCRIT 31.8 % (37.0-47.0); HEMOGLOBIN 10.3 gm/dL (12.0-15.0); MCH 29.2 pg (26.0-34.0); MCHC 32.4 g/dL (28.0-37.0); MCV 90.3 fL (80.0-100.0); MPV 9.3 fl. (7.2-11.1); RBC 3.53 mil/uL (4.20-5.00); RDW-CV 15.8 % (10.5-14.5); WBC 11.9 thou/uL (4.0-11.0)
[2020-06-10 05:40] LABS: ALBUMIN 2.6 g/dL (3.4-5.0); CALCIUM 8.6 mg/dL (8.5-10.1); CREATININE 0.7 mg/dL (0.6-1.3); MAGNESIUM 2.1 mg/dL (1.8-2.4); POTASSIUM 3.9 mmol/L (3.5-5.1); TOTAL BILIRUBIN 0.4 mg/dL (<0.1-1.0)
[2020-06-10 12:32] VITALS: BP 151/122
[2020-06-10 16:30] VITALS: BP 145/78
[2020-06-10 20:00] VITALS: BP 107/59
[2020-06-11] VITALS (7 sets, daily range): BP systolic 88–143; BP diastolic 45–82
[2020-06-11 10:17] LABS: CALCIUM 8.7 mg/dL (8.5-10.1); CREATININE 0.8 mg/dL (0.6-1.3); POTASSIUM 3.8 mmol/L (3.5-5.1)
[2020-06-12] VITALS: BP 119/47
[2020-06-12 04:00] LABS: HEMATOCRIT 33.4 % (37.0-47.0); MCH 29.4 pg (26.0-34.0); MCHC 32.9 g/dL (28.0-37.0); MCV 89.4 fL (80.0-100.0); MPV 9.3 fl. (7.2-11.1); RBC 3.73 mil/uL (4.20-5.00); RDW-CV 15.9 % (10.5-14.5); WBC 15.7 thou/uL (4.0-11.0)
[2020-06-12 04:15] LABS: ALBUMIN 2.5 g/dL (3.4-5.0); CALCIUM 8.5 mg/dL (8.5-10.1); CREATININE 0.8 mg/dL (0.6-1.3); MAGNESIUM 2.2 mg/dL (1.8-2.4); POTASSIUM 3.5 mmol/L (3.5-5.1); TOTAL BILIRUBIN 0.5 mg/dL (<0.1-1.0); TOTAL PROTEIN 6.1 g/dL (6.4-8.2)
[2020-06-12 14:15] VITALS: BP 137/117
[2020-06-12 20:30] VITALS: BP 148/76
== END 2020-06-12 23:20 | DRG 177 ==
LOC: M.ERS 03:30 → M.TBA-ER 06:29 → M.ORTHSURG 06:29
PROVIDERS: Emergency Medicine; ADMIT Internal Medicine; ATTEND Internal Medicine
DX: U07.1 COVID-19 (principal); J96.01 Acute respiratory failure with hypoxia; G92 Toxic encephalopathy; J12.89 Other viral pneumonia; E87.6 Hypokalemia; F03.90 Unspecified dementia, unspecified severity, without behavioral disturbance, psychotic disturbance, mood disturbance, and anxiety; F32.9 Major depressive disorder, single episode, unspecified; K21.9 Gastro-esophageal reflux disease without esophagitis; E03.9 Hypothyroidism, unspecified; E78.5 Hyperlipidemia, unspecified; E55.9 Vitamin D deficiency, unspecified; Z51.5 Encounter for palliative care; Z79.82 Long term (current) use of aspirin; Z79.899 Other long term (current) drug therapy